=== PATIENT | male | born 1980 | race Caucasian/White ===

== ENCOUNTER 2019-02-12 11:27 | Emergency (ER) | payer MEDICARE, MEDICAID ==
[2019-02-12] MEDS ORDERED: Metoclopramide HCl 10 MG/2 ML VIAL ONE (11:36)
[2019-02-12] MEDS ORDERED: Acetaminophen 500 MG TAB ONE (11:36)
[2019-02-12] MEDS ORDERED: diphenhydrAMINE 50 MG/ML VIAL ONE (11:36)
--- NOTE | 2019-02-12 12:39 | CT ---
CT Brain WO Con: 02/12/2019 12:20 PM CLINICAL HISTORY: Headache and dizziness. COMPARISON: None. FINDINGS: Hemorrhage: None. Ventricular system: Normal in size and morphology for the patient's age. Prominence of CSF density of the posterior fossa, traversing midline, favors a maria ines cisterna magna. Cerebral parenchyma: Normal Midline shift: None. Mass: No acute mass effect. Calvarium: Normal. Visualized Paranasal sinuses: Scattered mild inflammatory mucosal thickening. IMPRESSION: No acute intracranial abnormalities.
== END 2019-02-12 13:02 | disposition home or self-care (01) ==
LOC: ERS 11:27
DX: G93.89 Other specified disorders of brain (principal); F31.9 Bipolar disorder, unspecified; F20.9 Schizophrenia, unspecified; F17.210 Nicotine dependence, cigarettes, uncomplicated
CPT/HCPCS: 70450; 96365; 96375; J1200; J2765

== ENCOUNTER 2019-05-27 17:19 | Observation (INO) | payer MEDICARE, MEDICAID ==
[~2019-05-27 17:19] MED LIST: Iopamidol-370 76% 500 ML 1 ML ONE
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
[2019-05-27 18:26] LABS: #Basophils 0.1 thou/uL (0.0-0.2); #Eosinphils 0.2 thou/uL (0.0-0.7); #Lymphocytes 1.9 thou/uL (1.20-3.40); #Monocytes 0.5 thou/uL (0.11-0.59); %Basophils 0.8 % (0.0-1.0); %Eosinophils 2.5 % (0.0-10.0); %Lymphocytes 19.9 % (21.0-51.0); %Neutrophils 71.9 % (42.0-75.0); Hemoglobin 15.7 g/dL (14.0-18.0); Mean Corpuscular HGB CONC 33.5 g/dL (32.0-36.0); Mean Corpuscular Hemoglobin 29.6 pg (27.0-31.0); Mean Corpuscular Volume 88.4 fL (78.0-98.0); Mean Platelet Volume 6.9 fL (7.4-10.4); Platelet Count 268 thou/uL (130-400); RBC Distribution Width 12.4 % (11.5-14.5); Red Blood Cell (RBC) Count 5.31 mill/uL (4.70-6.10); White Blood Cell (WBC) Count 9.7 thou/uL (4.8-10.8)
[2019-05-27 18:51] LABS: ALT (SGPT) 299 U/L (8-55); AST (SGOT) 329 U/L (5-34); Albumin 4.1 g/dL (3.5-5.0); Alcohol 24 mg/dL (Less than 10); Alkaline Phosphatase 82 U/L (40-110); Anion Gap 15 mmol/L (10-20); BUN (Urea Nitrogen) 12 mg/dL (8.9-20.6); Bilirubin, Total 0.2 mg/dL (0.2-1.2); Calc. Creatinine Clearance 0 mL/min (70-130); Calcium 8.9 mg/dL (7.8-10.44); Carbon Dioxide 19 mmol/L (22-29); Chloride 109 mmol/L (98-107); Estimated GFR-MDRD Greater than 90; Glucose 102 mg/dL (70-105); Potassium 4.1 mmol/L (3.5-5.1); Protein, Total 7.1 g/dL (6.0-8.3); Sodium 139 mmol/L (136-145)
[2019-05-27] MEDS ORDERED: Adacel (T-DAP) 0.5 ML SYRINGE ONE (19:33)
--- NOTE | 2019-05-27 19:33 | CT ---
CT BRAIN: Date: 05-27-2019 Provided Clinical History: Trauma. FINDINGS: Comparison 02-12-19. The examination is mildly limited by patient motion particularly involving the caudal aspects of the imaging volume. The ventricular system appears normal in size and morphology. There is no evidence fo r intracranial hemorrhage or mass effect. CSF density structure posterior fossa is similar . The extr acranial soft tissues and osseous structures demonstrate no acute abnormality. IMPRESSION: No evidence for intracranial hemorrhage or mass effect. POS: EVELYN
--- NOTE | 2019-05-27 19:34 | CT ---
CT CERVICAL SPINE: Date: 05-27-2019 Provided Clinical History: Trauma FINDINGS: No evidence for fracture or traumatic subluxation. No prevertebral soft tissue swelling apparent. Deg enerative changes are seen. The visualized lung apices appear clear. IMPRESSION: No evidence for fracture or traumatic subluxation. POS: EVELYN
--- NOTE | 2019-05-27 19:38 | CT ---
CT CHEST, ABDOMEN, AND PELVIS WITH IV CONTRAST: Date: 05-27-2019 Provided Clinical History: Trauma FINDINGS: The heart, pericardium, and great vessels demonstrate no evidence for traumatic abnormality. The lung s are free of significant opacity. There is no pleural fluid or pneumothorax apparent. There are comm inuted, displaced right posterolateral 8th, 9th, and 10th rib fractures. There is adjacent extrapleur al hematoma. There is grade II laceration involving the right hepatic lobe peripherally. The solid abdominal organ s demonstrate no additional evidence for traumatic abnormality. There is no bowel dilatation, inflammatory fat stranding, significant free fluid or free air apparent . Trace fluid may be present about the right liver margin laterally, inferiorly. A gallstone is noted. Thoracic and lumbar spine reconstructions demonstrate normal spinal alignment and maintenance of vert ebral body heights. IMPRESSION: 1. Grade II right hepatic lobe laceration. 2. Right 8th, 9th, and 10th rib fractures as described. 3. Findings regarding the results of this study as well as the CTs of brain and cervical spine commun icated to Dr. Ozuna 7:08 p.m. 05-27-2019. Code CR POS: EVELYN
[2019-05-27] MEDS ORDERED: Ondansetron PF 4 MG/2 ML Vial ONE (20:19)
[2019-05-27] MEDS ORDERED: Morphine 4 MG/ML VIAL ONE (20:19)
[2019-05-27] MEDS ORDERED: Dextrose 50% Abboject 50 ML SYRINGE SLOW IVP PRN (21:12)
[2019-05-27] MEDS ORDERED: Morphine 2 MG/ML SYRINGE SLOW IVP PRN (21:12)
[2019-05-27] MEDS ORDERED: Dextrose 5% in Water 1,000 ML IV PRN (21:12)
[2019-05-27] MEDS ORDERED: hydrALAZINE 20 MG/ML VIAL SLOW IVP PRN (21:12)
[2019-05-27] MEDS ORDERED: Ondansetron PF 4 MG/2 ML Vial IVP PRN (21:12)
[2019-05-27] MEDS ORDERED: Morphine 4 MG/ML VIAL SLOW IVP PRN (21:12)
[2019-05-27] MEDS ORDERED: Rib Fracture Protocol PO SCH ×2 (21:15)
[2019-05-27] MEDS ORDERED: Cyclobenzaprine 10 MG TAB PO PRN (21:30)
[2019-05-27 21:55] LABS: Hemoglobin 15.6 g/dL (14.0-18.0)
[2019-05-27] MEDS ORDERED: Nicotine 14 MG PATCH TD SCH (23:00)
[2019-05-27] MEDS: Famotidine 20 MG TAB PO SCH (23:11)
[2019-05-27] MEDS: traMADol HCl 50 MG TAB PO SCH (23:12)
[2019-05-27] MEDS: Acetaminophen 500 MG TAB PO SCH (23:13)
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
[2019-05-28 03:18] LABS: Hemoglobin 15.2 g/dL (14.0-18.0)
[2019-05-28 03:38] LABS: ALT (SGPT) 263 U/L (8-55); AST (SGOT) 200 U/L (5-34); Alkaline Phosphatase 80 U/L (40-110); Anion Gap 13 mmol/L (10-20); BUN (Urea Nitrogen) 12 mg/dL (8.9-20.6); Bilirubin, Direct 0.1 mg/dL (0.1-0.3); Bilirubin, Total 0.3 mg/dL (0.2-1.2); Calc. Creatinine Clearance 0 mL/min (70-130); Calcium 8.7 mg/dL (7.8-10.44); Carbon Dioxide 23 mmol/L (22-29); Chloride 105 mmol/L (98-107); Estimated GFR-MDRD Greater than 90; Glucose 133 mg/dL (70-105); Lipase 9 U/L (8-78); Potassium 4.1 mmol/L (3.5-5.1); Sodium 137 mmol/L (136-145)
[2019-05-28] MEDS: Acetaminophen 500 MG TAB PO SCH ×3 (05:41→18:23)
[2019-05-28] MEDS: traMADol HCl 50 MG TAB PO SCH ×3 (05:41→18:24)
[2019-05-28] MEDS ORDERED: Oxazepam 10 MG CAP PO SCH (09:00)
[2019-05-28] MEDS ORDERED: Senokot S 8.6-50 MG TAB PO SCH (09:00)
[2019-05-28] MEDS ORDERED: Polyethylene Glycol 3350 17 GM Packet PO SCH (09:00)
[2019-05-28] MEDS: Folic Acid 1 MG TAB PO SCH (09:29)
[2019-05-28] MEDS: Senokot S 8.6-50 MG TAB PO SCH ×2 (09:29→20:19)
[2019-05-28] MEDS: Thiamine 100 MG TAB PO SCH (09:29)
[2019-05-28] MEDS: Famotidine 20 MG TAB PO SCH (09:29)
[2019-05-28] MEDS: Gabapentin 300 MG CAP PO SCH ×2 (09:29→15:00)
[2019-05-28] MEDS: OLANZapine 5 MG TAB PO SCH (09:29)
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
[2019-05-28] MEDS: Gabapentin 100 MG CAP PO SCH (20:19)
[2019-05-28] MEDS ORDERED: OLANZapine 5 MG TAB PO SCH (21:00)
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
[2019-05-29] MEDS: traMADol HCl 50 MG TAB PO SCH ×2 (00:47→05:30)
[2019-05-29] MEDS: Acetaminophen 500 MG TAB PO SCH ×2 (00:47→05:30)
[2019-05-29 04:29] LABS: Phosphorus 2.1 mg/dL (2.3-4.7)
[2019-05-29 04:39] LABS: ALT (SGPT) 187 U/L (8-55); AST (SGOT) 89 U/L (5-34); Albumin 3.6 g/dL (3.5-5.0); Alkaline Phosphatase 75 U/L (40-110); Anion Gap 11 mmol/L (10-20); BUN (Urea Nitrogen) 13 mg/dL (8.9-20.6); Bilirubin, Total 0.4 mg/dL (0.2-1.2); Calc. Creatinine Clearance 150 mL/min (70-130); Calcium 8.4 mg/dL (7.8-10.44); Carbon Dioxide 26 mmol/L (22-29); Chloride 104 mmol/L (98-107); Estimated GFR-MDRD Greater than 90; Globulin 2.7 g/dL (2.4-3.5); Glucose 119 mg/dL (70-105); Potassium 3.8 mmol/L (3.5-5.1); Protein, Total 6.3 g/dL (6.0-8.3); Sodium 137 mmol/L (136-145)
[2019-05-29 04:43] LABS: Band 1 % (5-11); Eosinophils 1 % (0-10); Hemoglobin 13.8 g/dL (14.0-18.0); Hypochromia SLIGHT = 6-15 cells (100X) (0-5/hpf); Lymphocytes 11 % (21-51); MDiff Complete? YES; Mean Corpuscular HGB CONC 32.7 g/dL (32.0-36.0); Mean Corpuscular Hemoglobin 28.9 pg (27.0-31.0); Mean Corpuscular Volume 88.3 fL (78.0-98.0); Mean Platelet Volume 6.8 fL (7.4-10.4); Monocytes 6 % (0-10); Neutrophil 81 % (42-75); Platelet Count 232 thou/uL (130-400); Platelet Morphology Comment Appears Adequate; RBC Distribution Width 12.5 % (11.5-14.5); Red Blood Cell (RBC) Count 4.77 mill/uL (4.70-6.10); White Blood Cell (WBC) Count 10.2 thou/uL (4.8-10.8)
[2019-05-29] MEDS ORDERED: traMADol HCl 50 MG TAB PO PRN (08:30)
[2019-05-29] MEDS ORDERED: PHOS-NAK 1 PKT PACK PO SCH (09:00)
[2019-05-29] MEDS ORDERED: Polyethylene Glycol 3350 17 GM Packet PO SCH (09:00)
[2019-05-29] MEDS: Senokot S 8.6-50 MG TAB PO SCH (09:29)
[2019-05-29] MEDS: Gabapentin 100 MG CAP PO SCH ×2 (09:29→16:49)
[2019-05-29] MEDS: Folic Acid 1 MG TAB PO SCH (09:29)
[2019-05-29] MEDS: Thiamine 100 MG TAB PO SCH (09:29)
[2019-05-29] MEDS: OLANZapine 5 MG TAB PO SCH (09:32)
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
[2019-05-29 11:58] VITALS: BP 144/82; TEMP 97.7
[2019-05-29] MEDS ORDERED: Acetaminophen 325 MG TAB PO SCH (12:00)
== END 2019-05-29 16:54 | disposition home or self-care (01) ==
LOC: ERS 17:19 → SURG A 21:15 → INTOOBSV 21:15
PROVIDERS: ADMIT Specialist; ATTEND Specialist
DX: S22.41XA Multiple fractures of ribs, right side, initial encounter for closed fracture (principal); S36.113A Laceration of liver, unspecified degree, initial encounter; S20.319A Abrasion of unspecified front wall of thorax, initial encounter; S30.811A Abrasion of abdominal wall, initial encounter; F31.9 Bipolar disorder, unspecified; F20.9 Schizophrenia, unspecified; F10.10 Alcohol abuse, uncomplicated; F12.10 Cannabis abuse, uncomplicated; F15.10 Other stimulant abuse, uncomplicated; Z86.11 Personal history of tuberculosis; Z87.891 Personal history of nicotine dependence; Z79.899 Other long term (current) drug therapy; V49.9XXA Car occupant (driver) (passenger) injured in unspecified traffic accident, initial encounter
CPT/HCPCS: 36415; 70450; 71045; 71260; 72125; 74177; 80048; 80053; 80076; 80307; 83605; 83690; 83735; 84100; 85007; 85014; 85018; 85025; 85027; 86850; 86900; 86901; 90471; 90715; 94640; 96374; 96375; G0390; J2270; J2405; J7620; Q9967

== ENCOUNTER 2022-03-26 19:16 | Emergency (ER) | payer MEDICAID, MEDICARE, OTHER, SELFPAY ==
[2022-03-26] MEDS ORDERED: diphenhydrAMINE 25 MG CAP ONE (21:48)
== END 2022-03-26 22:56 | disposition home or self-care (01) ==
LOC: ERS 19:16
DX: G25.71 Drug induced akathisia (principal); F17.210 Nicotine dependence, cigarettes, uncomplicated
CPT/HCPCS: 99283

== ENCOUNTER 2025-01-21 06:45 | Emergency (ER) | payer SELFPAY ==
[2025-01-21] MEDS ORDERED: Acetaminophen 325 MG TAB ONE (07:11)
== END 2025-01-21 08:12 | disposition home or self-care (01) ==
LOC: ERS 06:45
DX: S83.91XA Sprain of unspecified site of right knee, initial encounter (principal); X50.0XXA Overexertion from strenuous movement or load, initial encounter
CPT/HCPCS: 99283